=== PATIENT | male | born 1995 | race Caucasian/White ===

== ENCOUNTER 2020-06-03 06:55 | Emergency (ER) | payer BC ==
[2020-06-03 07:02] VITALS: RESP 18
[2020-06-03 07:48] LABS: Basophils # (A) 0.1 k/uL (0-0.2); Basophils % (A) 1 %; Eosinophils # (A) 0.3 k/uL (0-0.7); Eosinophils % (A) 4 %; HCT 46.3 % (39.0-53.0); HGB 15.5 gm/dL (13.0-17.5); Lymphocytes # (A) 2.1 k/uL (1.0-4.8); Lymphocytes % (A) 28 %; MCHC 33.4 g/dL (31.0-37.0); MCV 89.7 fL (80.0-100.0); Mean Platelet Volume 8.3; Monocytes # (A) 0.4 k/uL (0-1.0); Monocytes % (A) 6 %; Neutrophils # (A) 4.4 k/uL (1.3-7.7); Neutrophils % (A) 59 %; Platelet Count 189 k/uL (150-450); RBC 5.16 m/uL (4.30-5.90); RDW 12.8 % (11.5-15.5); WBC 7.5 k/uL (3.8-10.6)
[2020-06-03 07:58] LABS: ALT 65 U/L (4-49); AST 49 U/L (17-59); African American GFR (CKD) >90 (>60 ml/min/1.73 sqM); Alkaline Phosphatase 63 U/L (38-126); Anion Gap 9 mmol/L; Blood Urea Nitrogen 7 mg/dL (9-20); Calcium 9.1 mg/dL (8.4-10.2); Carbon Dioxide 29 mmol/L (22-30); Chloride 103 mmol/L (98-107); Glucose 103 mg/dL (74-99); Non-African American GFR(CKD) >90 (>60 ml/min/1.73 sqM); Potassium 4.3 mmol/L (3.5-5.1); Sodium 141 mmol/L (137-145); Total Bilirubin 0.4 mg/dL (0.2-1.3); Total Protein 7.2 g/dL (6.3-8.2)
--- NOTE | 2020-06-03 07:59 | XR ---
EXAMINATION TYPE: XR chest 2V DATE OF EXAM: 06/03/2020 COMPARISON: Chest x-ray 1995. HISTORY: Chest pain and heaviness for one week. TECHNIQUE: Frontal and lateral views of the chest are obtained. FINDINGS: Overlying EKG leads are present. There is no focal air space opacity, pleural effusion, or pneumothorax seen. The cardiac silhouette size is within normal limits. The osseous structures are intact. IMPRESSION: No acute process.
[2020-06-03 08:03] LABS: Partial Thromboplastin Time 25.4 sec (22.0-30.0); Prothrombin Time 10.1 sec (9.0-12.0)
[2020-06-03 08:07] LABS: D-Dimer <0.17 mg/L FEU (<0.60)
--- NOTE | 2020-06-03 08:11 | ED ---
General Adult HPI - General Chief complaint: Nausea/Vomiting/Diarrhea Stated complaint: indigestion Time Seen by Provider: 06/03/20 07:00 Source: patient Mode of arrival: ambulatory Limitations: no limitations - History of Present Illness Initial comments: 24-year-old male with no past medical history presents emergency Department with multiple complaints. Patient reports for the past 2-3 weeks he has had episodes of shortness of breath that happened throughout the day. Reports approximately 5 episodes per day. States that they occur when he is at home and resting. It starts with heaviness in the patient's chest and associated palpations. It lasted approximately 10 minutes before spontaneously resolved. Patient denies taking any medications for her symptoms but states that when he focuses on his breathing that it tends to go away. She denies any history of cardiac or lung disease. No history of DVT or PE. No family history of blood clotting disorders. Denies any recent travel. No calf pain or swelling. Denies a pleuritic chest pain. No infectious symptoms to include fevers, chills or productive cough. No contact with covid positive patient's or other sick contacts. No history of similar in the past. Reports that one episode happened while he was sitting in his car. He then ended up passing out. Unknown how long he was out for but he had an episode of urinary incontinence. Denies seizure-like activity. Denies history of previous seizures. She denies any headaches or visual changes. No sore throat or ear pain. Denies any neck pain or stiffness. No unilateral numbness or weakness. Denies abdominal pain. No vomiting. No diarrhea or constipation. No other alleviating, precipitating or modifying factors - Related Data Allergies Allergy/AdvReac Type Severity Reaction Status Date / Time No Known Allergies Allergy Verified 06/03/20 07:02 Review of Systems ROS Statement: Those systems with pertinent positive or pertinent negative responses have been documented in the HPI. ROS Other: All systems not noted in ROS Statement are negative. Past Medical History Past Medical History: No Reported History History of Any Multi-Drug Resistant Organisms: None Reported Past Surgical History: No Surgical Hx Reported Past Psychological History: No Psychological Hx Reported Smoking Status: Former smoker, Vaper Past Alcohol Use History: Rare Past Drug Use History: Marijuana General Exam Limitations: no limitations General appearance: alert, in no apparent distress Head exam: Present: atraumatic, normocephalic, normal inspection Eye exam: Present: normal appearance, PERRL, EOMI. Absent: scleral icterus, conjunctival injection, periorbital swelling ENT exam: Present: normal exam, mucous membranes moist Neck exam: Present: normal inspection. Absent: tenderness, meningismus, lymphadenopathy Respiratory exam: Present: normal lung sounds bilaterally. Absent: respiratory distress, wheezes, rales, rhonchi, stridor Cardiovascular Exam: Present: regular rate, normal rhythm, normal heart sounds. Absent: systolic murmur, diastolic murmur, rubs, gallop, clicks GI/Abdominal exam: Present: soft, normal bowel sounds. Absent: distended, tenderness, guarding, rebound, rigid Extremities exam: Present: normal inspection, full ROM, normal capillary refill. Absent: tenderness, pedal edema, joint swelling, calf tenderness Back exam: Present: normal inspection Neurological exam: Present: alert, oriented X3, CN II-XII intact Psychiatric exam: Present: normal affect, normal mood Skin exam: Present: warm, dry, intact, normal color. Absent: rash Course Vital Signs 06/03/20 06/03/20 06/03/20 06:58 08:25 09:58 Temperature 97.9 F 97.5 F L 98 F Pulse Rate 62 61 58 L Respiratory 18 18 18 Rate Blood Pressure 155/90 130/81 138/80 O2 Sat by Pulse 100 97 96 Oximetry - Reevaluation(s) Reevaluation #1: 06/03/20 09:23 Discuss the results of the tests with the patient. Patient mentions that 2 weeks ago he had an episode of a visual hallucination while driving. Because of this new information with the reported sick P versus seizure-like activity did order CT of the patient's brain EKG Findings - EKG Comments: EKG Findings:: EKG demonstrates a sinus bradycardia with a ventricular rate of 51. VA interval 164. QRS 90. QTC 361. No acute ST segment elevations or depressions. No signs of high degree block. Medical Decision Making - Medical Decision Making Upon arrival patient is placed into room 15. A thorough history and physical exam is performed. He is hooked up to continuous pulse ox and cardiac monitoring. Patient instructed to signs of respiratory distress while in the emergency department. Laboratory studies were conducted in the patient went for a chest x-ray. 12-lead EKG was performed. Laboratory studies are unremarkable. D-dimer is negative. Troponin is negative. Chest x-ray demonstrates no acute intrathoracic process. I did go back and reevaluate the patient. He does ment ion new symptoms of a visual hallucination that he had several weeks ago. With this new information and his episode of syncope with urinary incontinence I did recommend a CT of the patient's brain. This is reviewed and is negative for any intercranial finding. At this time patient will be discharged home. He is to follow up with his primary care physician. He does not have one at this time an d therefore one is referred to him. He should call his insurance company to ensure that they take his insurance. Patient will need echo and Holter monitoring. I also recommend an EEG and MRI. The patient is a new or worsening symptoms he should return to the emergency room. Recommended patient doesn't drive because of these episodes. Patient understood this. He was in agreement with the treatment plan and he was discharged home in stable condition - Lab Data Result diagrams: 06/03/20 07:31 06/03/20 07:31 Lab Results 06/03/20 06/03/20 06/03/20 Range/Units 07:31 07:31 07:31 WBC 7.5 (3.8-10.6) k/uL RBC 5.16 (4.30-5.90) m/uL Hgb 15.5 (13.0-17.5) gm/dL Hct 46.3 (39.0-53.0) % MCV 89.7 (80.0-100.0) fL MCH 30.0 (25.0-35.0) pg MCHC 33.4 (31.0-37.0) g/dL RDW 12.8 (11.5-15.5) % Plt Count 189 (150-450) k/uL Neutrophils % 59 % Lymphocytes % 28 % Monocytes % 6 % Eosinophils % 4 % Basophils % 1 % Neutrophils # 4.4 (1.3-7.7) k/uL Lymphocytes # 2.1 (1.0-4.8) k/uL Monocytes # 0.4 (0-1.0) k/uL Eosinophils # 0.3 (0-0.7) k/uL Basophils # 0.1 (0-0.2) k/uL PT 10.1 (9.0-12.0) sec INR 1.0 (<1.2) APTT 25.4 (22.0-30.0) sec D-Dimer <0.17 (<0.60) mg/L FEU Sodium 141 (137-145) mmol/L Potassium 4.3 (3.5-5.1) mmol/L Chloride 103 (98-107) mmol/L Carbon Dioxide 29 (22-30) mmol/L Anion Gap 9 mmol/L BUN 7 L (9-20) mg/dL Creatinine 0.78 (0.66-1.25) mg/dL Est GFR (CKD-EPI)AfAm >90 (>60 ml/min/1.73 sqM) Est GFR (CKD-EPI)NonAf >90 (>60 ml/min/1.73 sqM) Glucose 103 H (74-99) mg/dL Calcium 9.1 (8.4-10.2) mg/dL Total Bilirubin 0.4 (0.2-1.3) mg/dL AST 49 (17-59) U/L ALT 65 H (4-49) U/L Alkaline Phosphatase 63 (38-126) U/L Troponin I (0.000-0.034) ng/mL Total Protein 7.2 (6.3-8.2) g/dL Albumin 5.0 (3.5-5.0) g/dL 06/03/20 Range/Units 07:31 WBC (3.8-10.6) k/uL RBC (4.30-5.90) m/uL Hgb (13.0-17.5) gm/dL Hct (39.0-53.0) % MCV (80.0-100.0) fL MCH (25.0-35.0) pg MCHC (31.0-37.0) g/dL RDW (11.5-15.5) % Plt Count (150-450) k/uL Neutrophils % % Lymphocytes % % Monocytes % % Eosinophils % % Basophils % % Neutrophils # (1.3-7.7) k/uL Lymphocytes # (1.0-4.8) k/uL Monocytes # (0-1.0) k/uL Eosinophils # (0-0.7) k/uL Basophils # (0-0.2) k/uL PT (9.0-12.0) sec INR (<1.2) APTT (22.0-30.0) sec D-Dimer (<0.60) mg/L FEU Sodium (137-145) mmol/L Potassium (3.5-5.1) mmol/L Chloride (98-107) mmol/L Carbon Dioxide (22-30) mmol/L Anion Gap mmol/L BUN (9-20) mg/dL Creatinine (0.66-1.25) mg/dL Est GFR (CKD-EPI)AfAm (>60 ml/min/1.73 sqM) Est GFR (CKD-EPI)NonAf (>60 ml/min/1.73 sqM) Glucose (74-99) mg/dL Calcium (8.4-10.2) mg/dL Total Bilirubin (0.2-1.3) mg/dL AST (17-59) U/L ALT (4-49) U/L Alkaline Phosphatase (38-126) U/L Troponin I <0.012 (0.000-0.034) ng/mL Total Protein (6.3-8.2) g/dL Albumin (3.5-5.0) g/dL Disposition Clinical Impression: Syncope, Shortness of breath Disposition: HOME SELF-CARE Condition: Stable Instructions (If sedation given, give patient instructions): Syncope (ED) Additional Instructions: I recommend that you follow up with her primary care doctor and have Holter m onitoring and an echo performed. You may need an EEG and MRI because of your episode that could be suspected seizure-like activity. Return to the emergency room for any new or worsening symptoms Is patient prescribed a controlled substance at d/c from ED?: No Referrals: None,Stated [Primary Care Provider] - 1-2 days Alessio Sweeney MD [Medical Doctor] - 1-2 days [facility] [Provider Group] - 1-2 days Time of Disposition: 09:56
--- NOTE | 2020-06-03 09:53 | CT ---
EXAMINATION TYPE: CT brain wo con DATE OF EXAM: 06/03/2020 COMPARISON: NONE. HISTORY: Hallucinations CT DLP: 1174.4 mGycm. Automated Exposure Control for Dose Reduction was Utilized. TECHNIQUE: CT scan of the head is performed without contrast. FINDINGS: There is no acute intracranial hemorrhage, mass effect, or midline shift identified. The ventricles and sulci are within normal limits in size. Solomon-white matter differentiation is maintain ed. The globes are intact and the visualized sinuses are clear. IMPRESSION: No acute intracranial hemorrhage or midline shift is seen.
[2020-06-03 10:05] VITALS: BP 138/80; PULSE 58; TEMP 98
== END 2020-06-03 09:58 | disposition home or self-care (01) ==
LOC: EC 06:55
DX: R55 Syncope and collapse (principal); R06.02 Shortness of breath; R44.1 Visual hallucinations; R32 Unspecified urinary incontinence; Z87.891 Personal history of nicotine dependence
CPT/HCPCS: 36415; 70450; 71046; 80053; 84484; 85025; 85379; 85610; 85730; 93005; 99284

== ENCOUNTER → 2020-06-12 | Outpatient (CLI) | payer BC ==
--- NOTE | 2020-06-12 14:00 | ECHOF ---
Referral Reason:R55 Syncope MEASUREMENTS -------- HEIGHT: 177.8 cm WEIGHT: 99.8 kg BP: RVIDd: 3.9 cm (< 3.3) IVSd: 1.2 cm (0.6 - 1.1) LVIDd: 4.8 cm (3.9 - 5.3) LVPWd: 1.2 cm (0.6 - 1.1) IVSs: 1.5 cm LVIDs: 3.2 cm LVPWs: 1.8 cm LAESV Index (A-L): 26.09 ml/m Ao Diam: 3.0 cm (2.0 - 3.7) AV Cusp: 2.3 cm (1.5 - 2.6) MV EXCURSION: 24.865 mm (> 18.000) MV EF SLOPE: 102 mm/s (70 - 150) EPSS: 0.6 cm MV E Mike: 0.93 m/s MV DecT: 212 ms MV A Mike: 0.61 m/s MV E/A Ratio: 1.53 RAP: 5.00 mmHg RVSP: 32.60 mmHg FINDINGS -------- Sinus rhythm. This was a technically adequate study. The left ventricular size is normal. There is borderline concentric left ventricular hypertrophy. Overall left ventricular systolic function is normal with, an EF between 55 - 60 %. The diastolic filling pattern is normal for the age of the patient 9.55. The right ventricle is mild to moderately enlarged. Normal LA size by volume 22+/-6 ml/m2. The right atrial size is normal. Interatrial and interventricular septum intact. The aortic valve is trileaflet and appears structurally normal. There is no evidence of aortic regu rgitation. There is no evidence of aortic stenosis. There is trace to mild mitral regurgitation. Mild tricuspid regurgitation present. There is no evidence of pulmonary hypertension. The right v entricular systolic pressure, as measured by Doppler, is 32.60mmHg. There is no pulmonic regurgitation present. The aortic root size is normal. Normal inferior vena cava with normal inspiratory collapse consistent with estimated right atrial pre ssure of 5 mmHg. There is no pericardial effusion. CONCLUSIONS -------- 1. The left ventricular size is normal. 2. There is borderline concentric left ventricular hypertrophy. 3. Overall left ventricular systolic function is normal with, an EF between 55 - 60 %. 4. The diastolic filling pattern is normal for the age of the patient 9.55 5. The right ventricle is mild to moderately enlarged. 6. There is trace to mild mitral regurgitation. 7. Mild tricuspid regurgitation present. IMCU SPECIALIST: Jahaira Woo RDCS
== END | disposition home or self-care (01) ==
LOC: RADECHMAIN 10:48
PROVIDERS: ATTEND Family Medicine
DX: I08.1 Rheumatic disorders of both mitral and tricuspid valves (principal)
CPT/HCPCS: 93306